=== PATIENT | male | born 1935 | race Caucasian/White ===

== ENCOUNTER 2018-01-17 16:02 | Emergency (ER) | payer OTHER ==
[~2018-01-17] VITALS: Ht 165.1 cm; Wt 72.6 kg
[~2018-01-17 16:02] MED LIST: ADULT ASPIRIN81 MG PO; CALTRATE 600600 MG PO; NABUMETONE500 MG PO; PRILOSEC10 MG PO; PRILOSEC20 MG PO; ZOFRAN4 MG PO
[2018-01-17] MEDS ORDERED: METFORMIN HCL500 MG (16:27)
== END 2018-01-17 19:48 | disposition home or self-care (01) ==
LOC: ER 16:02
DX: M62.830 Muscle spasm of back (principal)

== ENCOUNTER 2020-04-21 16:15 | Emergency (ER) | payer OTHER ==
[~2020-04-21] VITALS: Ht 165.1 cm; Wt 68.9 kg
[~2020-04-21 16:15] MED LIST changes: +METFORMIN HCL500 MG
[2020-04-21] MEDS ORDERED: LIPITOR40 M1 (16:58)
[2020-04-21] MEDS ORDERED: IRBESARTAN-HCT1 EAC1 (16:59)
[2020-04-21] MEDS ORDERED: PENTOXIFYLLINE400 MG (16:59)
[2020-04-21] MEDS ORDERED: AIRDUO RESPICL1 EAC1 (17:00)
[2020-04-21] MEDS ORDERED: MIRALAX17 GM (17:00)
== END 2020-04-21 19:51 | disposition home or self-care (01) ==
LOC: ER 16:15
DX: K59.09 Other constipation (principal); D64.9 Anemia, unspecified; R53.81 Other malaise

== ENCOUNTER → 2020-08-15 | Emergency (ER) | payer OTHER ==
[~2020-08-15] VITALS: Ht 165.1 cm; Wt 68.0 kg
[~2020-08-15] MED LIST changes: +AIRDUO RESPICL1 EAC1; +IRBESARTAN-HCT1 EAC1; +LIPITOR40 M1; +MIRALAX17 GM; +PENTOXIFYLLINE400 MG
== END | disposition home or self-care (01) ==
LOC: ER 14:44
DX: E11.42 Type 2 diabetes mellitus with diabetic polyneuropathy (principal); G57.83 Other specified mononeuropathies of bilateral lower limbs; M79.604 Pain in right leg; M79.605 Pain in left leg; Z79.84 Long term (current) use of oral hypoglycemic drugs